=== PATIENT | female | born 1960 | race Caucasian/White ===

== ENCOUNTER 2018-10-09 12:51 | Emergency (ER) | payer BC ==
[2018-10-09] MEDS ORDERED: Cyclobenzaprine TAB* 10 MG PO ONE (13:53)
[2018-10-09] MEDS ORDERED: Ketorolac INJ* 60 MG/2 ML VIAL IM ONE (13:53)
--- NOTE | 2018-10-09 13:58 | ED ---
Back Pain - HPI Summary HPI Summary: This patient is a 57 year old F presenting to [facility] with a chief complaint of burning upper back, pain radiating up her neck, since 10 days ago. The patient rates the pain 10/10 in severity. Symptoms not alleviated by Aleve. Patient reports neck pain, ARNDT, and bilateral jaw pain. Patient denies CP or abdominal pain. Last week she went in to see her doctor and they suggested that she may have a muscle strain, but she does not agree with them. The patient says her pain is so severe that she cannot wear a bra. The patient very recently quit smoking tobacco. Allergy to Codeine. No PMHx cardiac problems. SHX former smoker. - History of Current Complaint Chief Complaint: EDExtremityUpper Stated Complaint: "MY SHOULDERS FEEL LIKE THEY ARE ON FIRE" PER PT Time Seen by Provider: 10/09/18 13:30 Hx Obtained From: Patient Onset/Duration: Sudden Onset, Lasting Weeks, Still Present Onset/Duration: Started Weeks Ago Timing: Constant Back Pain Location: Is Discrete @ - upper back, between shoulders Severity Initially: Moderate Severity Currently: Severe Pain Intensity: 10 Pain Scale Used: 0-10 Numeric Character: Burning Associated Signs And Symptoms: Negative: Abdominal Pain - Risk Factors AAA Risk Factors: Smoking - just quit TAD Risk Factors: Smoking - just quit - Allergies/Home Medications Allergies/Adverse Reactions: Allergies Allergy/AdvReac Type Severity Reaction Status Date / Time No Known Allergies Allergy Verified 10/09/18 13:05 PMH/Surg Hx/FS Hx/Imm Hx Endocrine/Hematology History: Denies: Hx Anticoagulant Therapy, Hx Diabetes Cardiovascular History: Denies: Hx Hypertension, Hx Pacemaker/ICD Sensory History: Denies: Hx Hearing Aid Psychiatric History: Denies: Hx Panic Disorder - Surgical History Surgery Procedure, Year, and Place: HYSTER-LAST R THUMB,TENDON REPLACE-NO METAL Infectious Disease History: No Infectious Disease History: Denies: Traveled Outside the [place] in Last 30 Days - Family History Known Family History: Positive: Other - back pain - Social History Alcohol Use: Daily Alcohol Amount: glass+ of wine Substance Use Type: Reports: Marijuana Substance Use Comment - Amount & Last Used: occasionally Smoking Status (MU): Former Smoker Review of Systems Negative: Chest Pain Negative: Abdominal Pain Positive: Myalgia - upper back, neck, jaw Positive: Headache All Other Systems Reviewed And Are Negative: Yes Physical Exam - Summary Physical Exam Summary: Appearance: Well appearing, no pain distress Skin: warm, dry, reflects adequate perfusion Head/face: normal Eyes: EOMI, HERON ENT: normal Neck: supple, non-tender Respiratory: CTA, breath sounds present Cardiovascular: RRR, pulses symmetrical Abdomen: non-tender, soft Musculoskeletal: normal, strength/ROM intact. Tenderness in the upper back. Neuro: normal, sensory motor intact, A&Ox3 GCS: 15 Triage Information Reviewed: Yes Vital Signs On Initial Exam: Initial Vitals Temp Pulse Resp BP Pulse Ox 99.5 F 90 18 153/99 95 10/09/18 12:59 10/09/18 12:59 10/09/18 12:59 10/09/18 12:59 10/09/18 12:59 Vital Signs Reviewed: Yes Diagnostics - Vital Signs Vital Signs Temp Pulse Resp BP Pulse Ox 10/09/18 13:44 63 17 127/89 95 10/09/18 13:43 14 10/09/18 12:59 99.5 F 90 18 153/99 95 - Laboratory Result Diagrams: 10/09/18 14:13 10/09/18 14:13 Lab Statement: Any lab studies that have been ordered have been reviewed, and results considered in the medical decision making process. - Radiology CXR Radiology Interpretation Completed By: Radiologist Summary of Radiographic Findings: NO ACTIVE CARDIOPULMONARY DISEASE IS NOTED. ED physician has reviewed this report. - CT C-spine CT Interpretation Completed By: Radiologist Summary of CT Findings: 1. NO EVIDENCE FOR FRACTURE OR SUBLUXATION.2. MODERATE CERVICAL SPONDYLOSIS DESCRIBED. IF THE PATIENT'S SYMPTOMS PERSIST RECOMMEND MR IMAGING. ED physician has reviewed this report. Brain CT Interpretation Completed By: Radiologist Summary of CT Findings: No intracranial mass or hemorrhage is noted. ED physician has reviewed this report. - EKG 13:14 Cardiac Rate: Bradycardia - 57 bpm EKG Rhythm: Sinus Bradycardia Summary of EKG Findings: ST/T changes Back Pain Course/Dx - Course Course Of Treatment: This patient is a 57 year old F presenting to [facility] with a chief complaint of burning upper back, pain radiating up her neck, since 10 days ago. The patient rates the pain 10/10 in severity. Symptoms not alleviated by Aleve. Patient reports neck pain, ARNDT, and bilateral jaw pain. Patient denies CP or abdominal pain. An EKG reveals sinus bradycardia 57 bpm, ST/T changes. CXR reveals, per radiologist, NO ACTIVE CARDIOPULMONARY DISEASE IS NOTED. C- spine CT reveals, per radiologist, 1. NO EVIDENCE FOR FRACTURE OR SUBLUXATION.2. MODERATE CERVICAL SPONDYLOSIS DESCRIBED. IF THE PATIENT'S SYMPTOMS PERSIST RECOMMEND MR IMAGING. Brain CT reveals, per radiologist, No intracranial mass or hemorrhage is noted. Bloodwork/UA obtained. In the ED course the patient was given Cyclobenzaprine and Keterolac. Patient will be discharged with prescription for Cyclobenzaprine, Diclofenac, and Tramadol and follow up from Dr. Anderson. The patient is agreeable with this plan. - Diagnoses Differential Diagnosis/HQI/PQRI: Positive: Arthritis, Sprain, Other - radiculitis neck Provider Diagnoses: Radiculitis involving upper extremity Discharge - Sign-Out/Discharge Documenting (check all that apply): Patient Departure - discharge Patient Received Moderate/Deep Sedation with Procedure: No - Discharge Plan Condition: Stable Disposition: HOME Prescriptions: Cyclobenzaprine TAB* [Flexeril 10 MG TAB*] 10 mg PO TID PRN #15 tab MDD 3 PRN Reason: Pain Diclofenac Sodium EC TAB* [Voltaren EC TAB*] 50 mg PO TID PRN #15 tab.ec MDD 3 PRN Reason: Pain Tramadol HCl [Ultram] 50 mg PO TID #12 tablet MDD 3 Patient Education Materials: Neck Pain (ED) Referrals: Justin RICKS,Hermelinda Dotson [Primary Care Provider] - 3 Days Additional Instructions: FOLLOW UP WITH DR. ANDERSON, IF NEEDED. - Billing Disposition and Condition Condition: STABLE Disposition: Home - Attestation Statements Document Initiated by Juany: Yes Documenting Scribe: Primitivo Clements Provider For Whom Juany is Documenting (Include Credential): Ramon Peña MD Scribe Attestation: Primitivo Kirby, javieribed for Ramon Peña MD on 10/09/18 at 1553. Scribe Documentation Reviewed: Yes Provider Attestation: The documentation as recorded by the Primitivo cristobal accurately reflects the service I personally performed and the decisions made by , Ramon Peña MD Status of Scribe Document: Viewed
[2018-10-09 14:25] LABS: ABS Basophils 0.1 10^3/ul (0-0.2); ABS Eosinophils 0.3 10^3/ul (0-0.6); ABS Lymphocytes 2.3 10^3/ul (1.0-4.8); ABS Monocytes 0.9 10^3/ul (0-0.8); ABS Neutrophils 4.9 10^3/ul (1.5-7.7); ABS Nucleated RBC 0 10^3/ul; Hematocrit 48 % (33-41); Hemoglobin 16.1 g/dL (12.0-16.0); Lymphocyte % 27.4 %; Mean Corpuscular HGB Conc 33 g/dL (31-36); Mean Corpuscular Hemoglobin 30 pg (27-31); Mean Corpuscular Volume 91 fL (80-97); Mean Platelet Volume 6.8 fL (7.4-10.4); Nucleated Red Blood Cells % 0.1; Platelet Count 321 10^3/uL (150-450); Red Cell Distribution Width 14 % (10.5-15); White Blood Count 8.5 10^3/uL (3.5-10.8)
[2018-10-09 14:38] LABS: Activated Partial Thrombo Time 39.6 seconds (26.0-36.3); INR 0.9 (0.77-1.02)
[2018-10-09 14:47] LABS: Albumin 4.1 g/dL (3.2-5.2); Albumin/Globulin Ratio 1.4 (1-3); BUN/Creatinine Ratio 17.6 (8-20); Calcium 8.8 mg/dL (8.6-10.3); EGFR African American 97.5 (>60); EGFR Non-African American 80.6 (>60); Globulin 2.9 g/dL (2-4); Potassium 4.4 mmol/L (3.5-5.0); Total Bilirubin 0.5 mg/dL (0.2-1.0)
[2018-10-09 15:42] VITALS: BP 129/60
== END 2018-10-09 15:57 | disposition home or self-care (01) ==
LOC: ED 12:51
DX: M54.10 Radiculopathy, site unspecified (principal); Z87.891 Personal history of nicotine dependence; Z88.5 Allergy status to narcotic agent; R00.1 Bradycardia, unspecified; M47.892 Other spondylosis, cervical region
CPT/HCPCS: 36415; 70450; 71045; 72125; 80053; 84484; 85025; 85610; 85730; 93005; 96372; 99283; A9270-GY; J1885

== ENCOUNTER 2019-05-11 13:53 | Emergency (ER) | payer BC ==
--- NOTE | 2019-05-11 15:08 | ED ---
Complex/Multi-Sys Presentation - HPI Summary HPI Summary: 58 year old female presents to [facility] with a chief complaint of chest wall pain secondary to falling yesterday. Patient was at a restaurant at [place] yesterday when she tripped and landed on her right side, hurting her back, right side of her chest, and left wrist. The pain did not reside this morning, with a severity of 8/10. She denies head or neck injuries. - History Of Current Complaint Chief Complaint: EDFall Time Seen by Provider: 05/11/19 14:27 Hx Obtained From: Patient Onset/Duration: Sudden Onset, Still Present Timing: Constant, Days Severity Currently: Severe Severity Initially: Severe Location: Pain At: - Back, right chest wall, left wrist. Associated Signs And Symptoms: Positive: Chest Pain, Back Pain, Other - Left wrist pain - Allergies/Home Medications Allergies/Adverse Reactions: Allergies Allergy/AdvReac Type Severity Reaction Status Date / Time codeine Allergy Nausea And Verified 05/11/19 14:02 Vomiting levofloxacin [From Levaquin] Allergy Nausea And Verified 05/11/19 14:02 Vomiting Home Medications: Home Medications Ergocalciferol (Vitamin D2) [Vitamin D2] 50,000 unit PO WEEKLY 05/11/19 [ History Confirmed 05/11/19] Nicotine Lozenge* (NF) [Nicotine Lozenge*] 1 mg PO Q2H PRN 05/11/19 [History Confirmed 05/11/19] Nicotine PATCH 21 MG/24 HR* 21 mg TRANSDERM DAILY 05/11/19 [History Confirmed ] Omeprazole (Nf) [Prilosec (NF)] 40 mg PO DAILY 05/11/19 [History Confirmed 05/11] Venlafaxine ER (NF) [Effexor ER (NF)] 150 mg PO DAILY WITH MEAL 05/11/19 [ History Confirmed 05/11/19] Venlafaxine EXT RELEASE CAP* [Effexor Xr CAP*] 75 mg PO DAILY WITH MEAL [History Confirmed 05/11/19] PMH/Surg Hx/FS Hx/Imm Hx Endocrine/Hematology History: Denies: Hx Anticoagulant Therapy, Hx Diabetes Cardiovascular History: Denies: Hx Hypertension, Hx Pacemaker/ICD Sensory History: Denies: Hx Hearing Aid Psychiatric History: Denies: Hx Panic Disorder - Surgical History Surgery Procedure, Year, and Place: HYSTER-LAST R THUMB,TENDON REPLACE-NO METAL - Immunization History Immunizations Up to Date: Yes Infectious Disease History: No Infectious Disease History: Denies: Traveled Outside the [place] in Last 30 Days - Family History Known Family History: Positive: Other - back pain - Social History Alcohol Use: Daily Alcohol Amount: glass+ of wine Substance Use Type: Reports: None Substance Use Comment - Amount & Last Used: occasionally Smoking Status (MU): Heavy Every Day Tobacco Smoker Review of Systems Negative: Fever Positive: Chest Pain Musculoskeletal: Negative - No neck pain, head pain Positive: Arthralgia - wrist pain, Myalgia - Back pain All Other Systems Reviewed And Are Negative: Yes Physical Exam - Summary Physical Exam Summary: Appearance: Well-appearing, Well-nourished, lying in bed comfortably Skin: Warm, dry, no obvious rash Eyes: sclera anicteric, no conjunctival pallor ENT: mucous membranes moist, pharynx appears normal Neck: Supple, nontender Respiratory: Clear to auscultation, no signs of respiratory distress Cardiovascular: Normal S1, S2. No murmurs. Normal distal pulses in tibial and radial bilaterally. Chest: Mild diffuse tenderness on right chest wall. No focal tenderness to her ribs. Abdomen: Soft, nontender, normal active bowel sounds present Musculoskeletal: Normal, Strength/ROM Intact. No focal tenderness to the spine. Left wrist has tenderness on the right anterior side. No deformity. Neurological: A&Ox3, awake and alert, mentation is normal, speech is fluent and appropriate Psychiatric: affect is normal, does not appear anxious or depressed Triage Information Reviewed: Yes Vital Signs On Initial Exam: Initial Vitals Temp Pulse Resp BP Pulse Ox 97.6 F 74 18 153/114 94 05/11/19 13:54 05/11/19 13:54 05/11/19 13:54 05/11/19 13:54 05/11/19 13:54 Vital Signs Reviewed: Yes Procedures - Sedation Patient Received Moderate/Deep Sedation with Procedure: No - Splinting Right Upper Extremity Location: OCL Hand-Made Type: orthoglass Splint: thumb spica Pre-Proc Neuro Vasc Exam: normal Post-Proc Neuro Vasc Exam: normal Splint Applied by Provider: Malena Tucker Diagnostics - Vital Signs Vital Signs Temp Pulse Resp BP Pulse Ox 05/11/19 13:54 97.6 F 74 18 153/114 94 - Laboratory Lab Statement: Any lab studies that have been ordered have been reviewed, and results considered in the medical decision making process. - Radiology Wrist XR Radiology Interpretation Completed By: Radiologist Summary of Radiographic Findings: Degenerative changes of the first carpal metacarpal joint. An ED physician has reviewed this report. Complex Multi-Symp Course/Dx Course Of Treatment: 58 year old female presents to [facility] with a chief complaint of chest wall pain secondary to falling yesterday. Patient was at a restaurant at [place] yesterday when she tripped and landed on her right side , hurting her back, right side of her chest, and left wrist. The pain did not reside this morning, with a severity of 8/10. She denies head or neck injuries. Physical exam shows mild diffuse tenderness to her right chest wall, no focal tenderness to her ribs. No respiratory distress or pain from deep breathing. No focal tenderness to her spine. Left wrist has tenderness on right anterior side , no deformity. Wrist XR shows degenerative changes of the first carpal metacarpal joint. Patient is diagnosed with a right wrist scaphoid fracture. Patient was given a splint and discharged home. I recommended that the patient see an orthopedic surgeon in the next week to follow up. She should return to the ED if symptoms change or worsen. Patient agreed with this plan. - Diagnoses Provider Diagnoses: Scaphoid fracture of wrist Discharge ED - Sign-Out/Discharge Documenting (check all that apply): Patient Departure - discharge - Discharge Plan Condition: Good Disposition: HOME Patient Education Materials: Splint Care (ED), Scaphoid Fracture (ED) Referrals: Hermelinda Anderson MD [Primary Care Provider] - Jackie Gavin MD [Medical Doctor] - 1 Week Additional Instructions: You can remove the splint for bathing, but otherwise leave it on. A followup visit with Dr. Gavin or one of her associates is important to make sure you do not have an occult scaphoid fracture. - Billing Disposition and Condition Condition: GOOD Disposition: Home - Attestation Statements Document Initiated by Scribe: Yes Documenting Scribe: Bob Vaughn Provider For Whom Adityaibe is Documenting (Include Credential): Dr. Jatinder Slater Scribe Attestation: I, Bob Vaughn, scribed for Dr. Jatinder Slater on 05/14/19 at 0155. Scribe Documentation Reviewed: Yes Provider Attestation: The documentation as recorded by the scribe, Bob Vaughn accurately reflects the service I personally performed and the decisions made by me, Dr. Jatinder Slater Status of Scribe Document: Viewed
[2019-05-11 16:46] VITALS: BP 135/93
== END 2019-05-11 16:55 | disposition home or self-care (01) ==
LOC: ED 13:53
DX: S62.002A Unspecified fracture of navicular [scaphoid] bone of left wrist, initial encounter for closed fracture (principal); F17.210 Nicotine dependence, cigarettes, uncomplicated; W01.0XXA Fall on same level from slipping, tripping and stumbling without subsequent striking against object, initial encounter; Y93.01 Activity, walking, marching and hiking; Y92.511 Restaurant or cafe as the place of occurrence of the external cause; Z88.5 Allergy status to narcotic agent; Z88.1 Allergy status to other antibiotic agents; Z79.899 Other long term (current) drug therapy
CPT/HCPCS: 99281